=== PATIENT | male | born 1955 | race Caucasian/White ===

== ENCOUNTER 2018-11-07 12:37 | Emergency (ER) | payer OTHER ==
[2018-11-07 12:43] VITALS: BP 119/62; PULSE 74; TEMP 97.3; BMI 24.3
--- NOTE | 2018-11-07 13:40 | PDOC ---
*Physical Exam - Vital Signs Last Vital Signs Temp Pulse Resp BP Pulse Ox 97.3 F L 74 18 119/62 96 11/07/18 12:39 11/07/18 12:39 11/07/18 12:39 11/07/18 12:39 11/07/18 12:39 - Physical Exam Comments: 11/07/18 13:40 The patient was examined by [JUAN DIEGO Young] under my direct supervision. I personally evaluated the patient. I concur with the above findings and the plan of care.
--- NOTE | 2018-11-07 13:52 | PDOC ---
History of Present Illness - General Chief Complaint: Pain, Acute Stated Complaint: KIDNEY STONE Time Seen by Provider: 11/07/18 13:22 History Source: Patient Past History - Past Medical History Allergies/Adverse Reactions: Allergies Allergy/AdvReac Type Severity Reaction Status Date / Time sulfamethoxazole Allergy Verified 11/07/18 12:43 [From Bactrim] trimethoprim [From Bactrim] Allergy Verified 11/07/18 12:43 Home Medications: Ambulatory Orders Amlodipine Besylate 10 mg PO HS 11/07/18 Apixaban [Eliquis] 5 mg PO BID 11/07/18 Atorvastatin Ca [Lipitor] 10 mg PO HS 11/07/18 Dolutegravir/Rilpivirine [Juluca 50-25 mg Tablet] 1 each PO HS 11/07/18 Doxazosin Mesylate 2 mg PO HS 11/07/18 Glipizide [Glipizide ER] 10 mg PO BID 11/07/18 Metformin HCl [Glucophage] 500 mg PO BID 11/07/18 Metoprolol Succinate 250 mg PO HS 11/07/18 [place]-3/Dha/Epa/Fish Oil [[place] 3 500 Softgel] 1 each PO BID 11/07/18 Sitagliptin Phosphate [Januvia] 100 mg PO HS 11/07/18 Cancer: Yes (LUNG CA) Cardiac Disorders: Yes (A-FIB) COPD: No Diabetes: Yes HTN: Yes - Suicide/Smoking/Psychosocial Hx Smoking History: Never smoked Review of Systems - Review of Systems Constitutional: No: Chills, Fever, Malaise ABD/GI: No: Nausea, Vomiting, Abdominal cramping : No: Dysuria, Flank Pain, Hematuria *Physical Exam - Vital Signs Last Vital Signs Temp Pulse Resp BP Pulse Ox 97.3 F L 74 18 119/62 96 11/07/18 12:39 11/07/18 12:39 11/07/18 12:39 11/07/18 12:39 11/07/18 12:39 - Physical Exam General Appearance: Yes: Appropriately Dressed. No: Apparent Distress HEENT: positive: Normal Voice Neck: positive: Supple Respiratory/Chest: negative: Respiratory Distress Gastrointestinal/Abdominal: positive: Soft. 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 Pt states he seen seen by his review analyst at [place] [facility] yesterday who told pt that his renal function was worsening and sent pt for renal US where pt was dx josemelany stone. States he was then sent to the ED there, but signed out AMA as he was unhappy with care. Denies any flank pain, nausea, vomiting, dysuria or hematuria and reports feeling well at this time See exam Worsening renal function w/ 1.2 cm L stone/hydro on US yesterday Signed out AMA at OSH Reports no sxs Well rabia and stable w/ unremarkable exam -labs -CT 11/07/18 14:17 11/07/18 16:11 I called pt's PMD, Dr Carlos, and informed him of labs demonstrating cr of 2.[address] report showing ~1cm stone to proximal L ureter w/ mod hydro. Per MD, she does have and having worsening of his renal function lately. In September of this year, creatinine was 2.5, was 1.9 yesterday. Pt was then referred to a review analyst at [place]. Aware that we are going to get consult in ED. IVF in progress 11/07/18 17:10 Case d/w Dr Rucker of urology who states if patient has no pain, nausea, vomiting, and is stable, can be discharged to have procedure done electively. Wants patient to call him at his office tomorrow to be seen 11/07/18 17:13 *DC/Admit/Observation/Transfer Diagnosis at time of Disposition: Renal stone Hydronephrosis Qualifiers: Hydronephrosis type: unspecified Qualified Code(s): N13.30 - Unspecified hydronephrosis - Discharge Dispostion Disposition: HOME Condition at time of disposition: Good - Referrals Referrals: Damáin Montgomery MD [Primary Care Provider] - - Patient Instructions Printed Discharge Instructions: DI for Kidney Stones Additional Instructions: Please call Dr. Mederos of urology tomorrow for an appointment at Return to ED sooner if you become symptomatic - Post Discharge Activity
[2018-11-07 14:37] LABS: BASO % 0.9 % (0-2.0); EOS % 1.7 % (0-4.5); HEMATOCRIT 37.1 % (35.4-49); HEMOGLOBIN 12.9 GM/dL (11.7-16.9); LYMPH % 44.2 % (8-40); MCH 32.7 pg (25.7-33.7); MCHC 34.8 g/dl (32.0-35.9); MEAN CELL VOLUME 93.8 fl (80-96); MONO % 8.3 % (3.8-10.2); NEUT % 44.9 % (42.8-82.8); PLATELET COUNT 221 K/MM3 (134-434); RBC 3.96 M/mm3 (4.00-5.60); RDW 15.1 % (11.9-15.9); WHITE BLOOD COUNT 9.6 K/mm3 (4.0-10.0)
[2018-11-07 14:46] LABS: EPI CELLS 0.7 /HPF (0-5/HPF); URINE APPEARANCE CLEAR; URINE BILIRUBIN NEGATIVE (NEGATIVE); URINE CASTS 1 /hpf (0-8); URINE COLOR YELLOW; URINE GLUCOSE (UA) TRACE (NEGATIVE); URINE KETONE NEGATIVE (NEGATIVE); URINE LEUK ESTERASE TRACE (NEGATIVE); URINE NITRITE NEGATIVE (NEGATIVE); URINE PROTEIN NEGATIVE (NEGATIVE); URINE RBC 2 /hpf (0-4); URINE UROBILINOGEN 0.2 mg/dL (0.2-1.0); URINE WBC 5 /hpf (0-5)
[2018-11-07 15:01] LABS: ALBUMIN 4.6 g/dl (3.4-5.0); ALK PHOS 86 U/L (45-117); ANION GAP 8 MMOL/L (8-16); BILIRUBIN,TOTAL 0.4 mg/dL (0.2-1); BLOOD UREA NITROGEN 36 mg/dL (7-18); CALCIUM 10.1 mg/dL (8.5-10.1); CHLORIDE 104 mmol/L (98-107); CO2 22 mmol/L (21-32); CREATININE 2.2 mg/dL (0.55-1.3); GLUCOSE,RANDOM 185 mg/dL (74-106); POTASSIUM 4.7 mmol/L (3.5-5.1); SGOT/AST 25 U/L (15-37); SGPT/ALT 32 U/L (13-61); SODIUM 134 mmol/L (136-145); TOT PROT 8.4 g/dl (6.4-8.2)
[2018-11-07] MEDS ORDERED: SODIUM CHLORIDE 1,000 ML IV STA (15:57)
[2018-11-07] MEDS ORDERED: TAMSULOSIN HCL 0.4 MG CAP PO ONE (15:57)
[2018-11-07] MEDS ORDERED: TAMSULOSIN HCL 0.4 MG CAP ONE (16:02)
[2018-11-07 18:26] LABS: PLATELET ESTIMATE ADEQUATE
== END 2018-11-07 17:49 | disposition home or self-care (01) ==
LOC: JER 12:37
DX: S09.90XA Unspecified injury of head, initial encounter (principal); R41.82 Altered mental status, unspecified; W10.9XXA Fall (on) (from) unspecified stairs and steps, initial encounter; Y93.89 Activity, other specified; Y92.218 Other school as the place of occurrence of the external cause
CPT/HCPCS: 36415; 74176-TC; 80053; 81003; 85025; 99282-25; J7030

== ENCOUNTER 2018-11-15 11:27 | Day surgery (SDC) | payer OTHER ==
[2018-11-14 12:05] VITALS: BMI 24.3
--- NOTE | 2018-11-15 13:15 | HP ---
History & Physical Update - History History: No Change - Physical Physical: No Change - Assessment Assessment: No Change - Plan Plan: No Change
[2018-11-15] MEDS ORDERED: ACETAMINOPHEN 1000 MG/100 ML VIAL (NON FORMULARY) IVPB ONE (13:17)
[2018-11-15] MEDS ORDERED: PROPOFOL 20 ML ONE (13:17)
[2018-11-15] MEDS ORDERED: LIDOCAINE HCL/PF 2% SDV 5ML VIAL ONE (13:17)
[2018-11-15] MEDS ORDERED: MIDAZOLAM HCL 2 MG/2 ML SINGLE DOSE VIAL ONE (13:23)
[2018-11-15] MEDS ORDERED: ceFAZolin SODIUM 1 GM VIAL IVPB ONE (13:44)
[2018-11-15] MEDS ORDERED: LACTATED RINGERS SOLUTION 1,000 ML IV SCH (14:45)
[2018-11-15] MEDS ORDERED: ACETAMINOPHEN INJECTION 100 ML IVPB ONE (15:05)
[2018-11-15] MEDS ORDERED: oxyCODONE HCL 5 MG TABLET ONE (15:35)
[2018-11-15] MEDS ORDERED: oxyCODONE HCL 5 MG TABLET PO ONE (15:35)
[2018-11-15] MEDS ORDERED: oxyCODONE HCL 5 MG TABLET PO PRN ×2 (16:08)
--- NOTE | 2018-11-15 17:32 | PN ---
Progress Note (short form) - Note Progress Note: patient does not feel safe going home. will admit overnight for pain management and nausea
[2018-11-15] MEDS ORDERED: morphine SULFATE 4 MG/ML VIAL IVPUSH PRN ×2 (17:34→23:54)
[2018-11-15] MEDS ORDERED: ONDANSETRON 4 MG/2 ML VIAL IM PRN (17:35)
[2018-11-15] MEDS ORDERED: amLODIPine BESYLATE 10 MG TABLET (FP) PO SCH ×2 (17:45→22:00)
[2018-11-15] MEDS ORDERED: DOXAZOSIN MESYLATE 2 MG TABLET (FP) PO SCH ×2 (17:45→22:00)
[2018-11-15] MEDS: IBUPROFEN 800 MG/8 ML IJ IVPB SCH ×2 (18:31→18:53)
[2018-11-15] MEDS: DEXTROSE 5%-0.45% SALINE 1,000 ML IV SCH (18:51)
[2018-11-15] MEDS: CEFAZOLIN 1 GM/D5W 1 GM/50 ML BAG IVPB SCH (19:05)
[2018-11-15] MEDS ORDERED: IBUPROFEN 800 MG/8 ML IJ IVPB PRN (19:30)
[2018-11-15] MEDS: APIXABAN 5 MG TABLET PO SCH (21:34)
[2018-11-15] MEDS ORDERED: ATORVASTATIN CA 10 MG TABLET (FP) PO SCH (22:00)
[2018-11-15] MEDS ORDERED: sitaGLIPtin PHOSPHATE 100 MG TABLET (FP) PO SCH (22:00)
[2018-11-15] MEDS ORDERED: TAMSULOSIN HCL 0.4 MG CAP PO ONE (23:45)
[2018-11-16] MEDS ORDERED: PHENAZOPYRIDINE HCL 100 MG TABLET (FP) PO ONE (00:15)
--- NOTE | 2018-11-16 00:15 | OP ---
Operative Note - Note: Operative Date: 11/15/18 Pre-Operative Diagnosis: left ureteral calculus Operation: left ureteroscopic laser lithotripsy and ureteral stent placement Post-Operative Diagnosis: Same as Pre-op
[2018-11-16] MEDS: CEFAZOLIN 1 GM/D5W 1 GM/50 ML BAG IVPB SCH ×2 (01:56→11:16)
[2018-11-16] MEDS ORDERED: glipiZIDE 5 MG TABLET (FP) ONE (05:08)
[2018-11-16] MEDS ORDERED: PT OWN MED DRAWER 7, Y5N ONE ×4 (05:08→14:48)
[2018-11-16] MEDS: PHENAZOPYRIDINE HCL 100 MG TABLET (FP) PO SCH ×2 (06:25→14:05)
[2018-11-16] MEDS ORDERED: glipiZIDE 10 MG TABLET (FP) PO SCH (07:00)
[2018-11-16 08:24] LABS: BASO % 0.6 % (0-2.0); EOS % 0.8 % (0-4.5); HEMATOCRIT 31.8 % (35.4-49); HEMOGLOBIN 11.1 GM/dL (11.7-16.9); LYMPH % 27.8 % (8-40); MCH 32.4 pg (25.7-33.7); MCHC 34.8 g/dl (32.0-35.9); MEAN CELL VOLUME 93.2 fl (80-96); MEAN PLT VOLUME 8.1 fl (7.5-11.1); MONO % 7.8 % (3.8-10.2); PLATELET COUNT 188 K/MM3 (134-434); RBC 3.41 M/mm3 (4.00-5.60); RDW 14.9 % (11.9-15.9); WHITE BLOOD COUNT 10.7 K/mm3 (4.0-10.0)
[2018-11-16 08:28] LABS: ANION GAP 9 MMOL/L (8-16); BLOOD UREA NITROGEN 20 mg/dL (7-18); CALCIUM 8.7 mg/dL (8.5-10.1); CHLORIDE 105 mmol/L (98-107); CO2 22 mmol/L (21-32); CREATININE 1.5 mg/dL (0.55-1.3); GLUCOSE,RANDOM 238 mg/dL (74-106); SODIUM 136 mmol/L (136-145)
[2018-11-16] MEDS: APIXABAN 5 MG TABLET PO SCH (11:17)
--- NOTE | 2018-11-16 12:12 | PN ---
Progress Note (short form) - Note Progress Note: Afebrile VSS pain is improved. patient is voiding can discharge home
--- NOTE | 2018-11-16 12:46 | OP ---
DATE OF OPERATION: 11/15/2018 PREOPERATIVE DIAGNOSIS: Left ureteral calculus, left hydronephrosis. POSTOPERATIVE DIAGNOSIS: Left ureteral calculus, left hydronephrosis. PROCEDURE: Left ureteroscopic laser lithotripsy, retrograde pyelogram, and left ureteral stent placement. ANESTHESIA: General. SURGEON: Anatoly Rucker MD ESTIMATED BLOOD LOSS: None. DRAINS: A 6 x 26 double J ureteral stent. PREOPERATIVE INDICATIONS: The patient is 63-year-old male who has an obstructing 1-cm stone in the proximal left ureter with hydronephrosis. This has been there likely for several weeks to months, and he does not have any pain; however, he has significant hydronephrosis. He comes to the OR for laser lithotripsy. DESCRIPTION OF PROCEDURE: The patient was brought to the OR. Placed on the table in the supine position. Given general anesthesia and IV antibiotics and placed in the modified lithotomy position. The groin was prepped and draped sterilely. Cystoscopy was performed. The urethra and prostate appeared to be normal and unremarkable. The bladder itself also appear to be normal. The left UO was visualize. A wire was passed into the left kidney under fluoroscopic guidance. A 2nd wire was then placed through a 10-Yoruba lumen catheter, and the ureter was dilated. A flexible ureteroscope was easily passed up the ureter into the left kidney. No stones were seen in the ureter; however, the stone that was previously there was pushed up into the midpole. Using a Holmium laser fiber, the stone was broken up into small, passable fragments. There was a fair amount of inflammatory debris in the kidney most likely secondary to the longstanding obstruction. A 6 x 26 double J ureteral stent was left in place with 1 loop in the kidney, 1 loop in the bladder. The bladder was emptied. The patient was woken up. Klever [id number]
[2018-11-16 13:27] VITALS: BP 143/76; PULSE 76; TEMP 99
[2018-11-16] MEDS: DEXTROSE 5%-0.45% SALINE 1,000 ML IV SCH (14:04)
== END 2018-11-16 15:32 | disposition home or self-care (01) ==
LOC: JASU-SURG 11:27 → J8W 18:54 → JASU-SURG 11-16 15:32
PROVIDERS: ATTEND Urology
PROC: 0TF78ZZ Fragmentation in Left Ureter, Via Natural or Artificial Opening Endoscopic (ICD-10-PCS; principal; 2018-11-15 13:00)
PROC: 0T778DZ Dilation of Left Ureter with Intraluminal Device, Via Natural or Artificial Opening Endoscopic (ICD-10-PCS; 2018-11-15 13:00)
DX: N20.1 Calculus of ureter (principal); N13.39 Other hydronephrosis
CPT/HCPCS: 36415; 76000-TC-FY; 80048; 82962; 85025; 94760; J0131

== ENCOUNTER 2018-12-03 13:23 | Emergency (ER) | payer OTHER ==
[2018-12-03 13:37] VITALS: BP 155/65; PULSE 82; TEMP 97.5; BMI 25.7
--- NOTE | 2018-12-03 13:38 | PDOC ---
Rapid Medical Evaluation Time Seen by Provider: 12/03/18 13:31 Medical Evaluation: Allergies Allergy/AdvReac Type Severity Reaction Status Date / Time sulfamethoxazole Allergy Verified 12/03/18 13:33 [From Bactrim] trimethoprim [From Bactrim] Allergy Verified 12/03/18 13:33 12/03/18 13:36 I have performed a brief in-person evaluation of this patient. The patient presents with a chief complaints of: shortness of breath and weakness. Patient reports since last night he feels tired, weakness and " oozy" Pertinent physical exam findings NAD slightly diminished lung sound on the right,otherwise clear heart s1s2 + bowel sounds I have ordered the following: ekg, chest xray The patient will proceed to the ED for further evaluation. Discharge Disposition - Diagnosis Dizziness - Referrals - Patient Instructions - Post Discharge Activity
--- NOTE | 2018-12-03 13:46 | PDOC ---
History of Present Illness - General Chief Complaint: Shortness of Breath Stated Complaint: SOB Time Seen by Provider: 12/03/18 13:31 - History of Present Illness Initial Comments: 12/03/18 13:45 12/03/18 13:36 I have performed a brief in-person evaluation of this patient. The patient presents with a chief complaints of: shortness of breath and weakness. Patient reports since last night he feels tired, weakness and " oozy" Pertinent physical exam findings NAD slightly diminished lung sound on the right,otherwise clear heart s1s2 + bowel sounds I have ordered the following: ekg, chest xray The patient will proceed to the ED for further evaluation. Past History - Past Medical History Allergies/Adverse Reactions: Allergies Allergy/AdvReac Type Severity Reaction Status Date / Time sulfamethoxazole Allergy Verified 12/03/18 13:33 [From Bactrim] trimethoprim [From Bactrim] Allergy Verified 12/03/18 13:33 Home Medications: Ambulatory Orders Amlodipine Besylate 10 mg PO HS 11/07/18 Apixaban [Eliquis] 5 mg PO BID 11/07/18 Atorvastatin Ca [Lipitor] 10 mg PO HS 11/07/18 Dolutegravir/Rilpivirine [Juluca 50-25 mg Tablet] 1 each PO HS 11/07/18 Doxazosin Mesylate 2 mg PO HS 11/07/18 Glipizide [Glipizide ER] 10 mg PO BID 11/07/18 Metformin HCl [Glucophage] 500 mg PO BID 11/07/18 Metoprolol Succinate 250 mg PO HS 11/07/18 [place]-3/Dha/Epa/Fish Oil [[place] 3 500 Softgel] 1 each PO BID 11/07/18 Sitagliptin Phosphate [Januvia] 100 mg PO HS 11/07/18 Cancer: Yes (LUNG CA) Cardiac Disorders: Yes (A-FIB) COPD: No CHF: Yes Diabetes: Yes HTN: Yes - Surgical History Neurologic Surgery: Yes (L5 DISCCECTOMY) - Immunization History Immunization Up to Date: Yes - Suicide/Smoking/Psychosocial Hx Smoking History: Never smoked Hx Alcohol Use: No Drug/Substance Use Hx: No *Physical Exam - Vital Signs Last Vital Signs Temp Pulse Resp BP Pulse Ox 97.5 F L 82 16 155/65 97 12/03/18 13:33 12/03/18 13:33 12/03/18 13:33 12/03/18 13:33 12/03/18 13:33 *DC/Admit/Observation/Transfer Diagnosis at time of Disposition: Dizziness - Referrals - Patient Instructions - Post Discharge Activity
--- NOTE | 2018-12-03 14:17 | PDOC ---
History of Present Illness - General Chief Complaint: Shortness of Breath Stated Complaint: SOB Time Seen by Provider: 12/03/18 13:31 History Source: Patient Exam Limitations: No Limitations - History of Present Illness Initial Comments: 12/03/18 16:22 63-year-old male with of diabetes hypertension dyslipidemia and HIV presents with complaints of generalized weakness, fatigue and mild dizziness with standing. Patient states also his glucose has been in the 200s but denies any abdominal pain, nausea, urinary complaints, blood in his stool or urine. Patient states that had a ureteral stent removed by Dr. Rick White in 2 weeks ago secondary to a large kidney stone. Patient denies back pain or fever. Timing/Duration: intermittent Severity: mild Associated Symptoms: reports: loss of appetite, weakness Past History - Travel Traveled outside of the country in the last 30 days: No - Past Medical History Allergies/Adverse Reactions: Allergies Allergy/AdvReac Type Severity Reaction Status Date / Time sulfamethoxazole Allergy Verified 12/03/18 13:33 [From Bactrim] trimethoprim [From Bactrim] Allergy Verified 12/03/18 13:33 Home Medications: Ambulatory Orders Amlodipine Besylate 10 mg PO HS 11/07/18 Apixaban [Eliquis] 5 mg PO BID 11/07/18 Atorvastatin Ca [Lipitor] 10 mg PO HS 11/07/18 Dolutegravir/Rilpivirine [Juluca 50-25 mg Tablet] 1 each PO HS 11/07/18 Doxazosin Mesylate 2 mg PO HS 11/07/18 Glipizide [Glipizide ER] 10 mg PO BID 11/07/18 Metformin HCl [Glucophage] 500 mg PO BID 11/07/18 Metoprolol Succinate 250 mg PO HS 11/07/18 [place]-3/Dha/Epa/Fish Oil [[place] 3 500 Softgel] 1 each PO BID 11/07/18 Sitagliptin Phosphate [Januvia] 100 mg PO HS 11/07/18 Cancer: Yes (LUNG CA) Cardiac Disorders: Yes (A-FIB) COPD: No CHF: Yes Diabetes: Yes HTN: Yes - Surgical History Neurologic Surgery: Yes (L5 DISCCECTOMY) - Immunization History Immunization Up to Date: Yes - Suicide/Smoking/Psychosocial Hx Smoking History: Never smoked Hx Alcohol Use: No Drug/Substance Use Hx: No Patient Lives Alone: Yes Lives with/in: lives alone Review of Systems - Review of Systems Able to Perform ROS?: No Is the patient limited Mexican proficient: No Constitutional: Yes: Weakness HEENTM: No: Symptoms Reported Respiratory: No: Symptoms reported Cardiac (ROS): Yes: Lightheadedness ABD/GI: No: Symptoms Reported : No: Symptoms Reported Musculoskeletal: No: Symptoms Reported Integumentary: No: Symptoms Reported Neurological: Yes: Weakness. No: Symptoms reported Endocrine: No: Symptoms Reported Hematologic/Lymphatic: No: Symptoms Reported *Physical Exam - Vital Signs Last Vital Signs Temp Pulse Resp BP Pulse Ox 97.5 F L 82 16 155/65 97 12/03/18 13:33 12/03/18 13:33 12/03/18 13:33 12/03/18 13:33 12/03/18 13:33 - Physical Exam General Appearance: Yes: Nourished, Appropriately Dressed. No: Apparent Distress HEENT: positive: EOMI, MARY. negative: Pale Conjunctivae Neck: positive: Supple Respiratory/Chest: positive: Lungs Clear, Normal Breath Sounds. negative: Respiratory Distress, Accessory Muscle Use Cardiovascular: positive: Regular Rhythm, Regular Rate. negative: Murmur Gastrointestinal/Abdominal: positive: Soft. negative: Tenderness Integumentary: positive: Normal Color, Warm, Moist Neurologic: positive: Motor Strength 5/5 (ambulatory) Heart Score/ECG Review - ECG Intrepretation Rhythm: Regular Rhythm (Rate 97 rhythm A. fib. Left axis deviation with left ventricular hypertrophy) ED Treatment Course - LABORATORY CBC & Chemistry Diagram: 12/03/18 14:54 12/03/18 14:54 Medical Decision Making - Medical Decision Making 12/03/18 16:03 Chief complaint weakness dizziness and fatigue for the past few days. Patient with recent renal stone requiring stent placement and removal approximate 2 weeks ago. patient states HIV is undetectable Exam: Vital stable. No acute findings. Plan: Labs, urine, EKG and IV fluids 12/03/18 17:04 Laboratory Tests 11/07/18 11/16/18 12/03/18 14:12 07:00 14:54 WBC 12.2 H Hgb 13.7 Hct 40.5 D Absolute Neuts (auto) 7.5 Sodium Potassium Chloride Carbon Dioxide Anion Gap BUN Creatinine 2.2 H 1.5 H Random Glucose Calcium Magnesium AST ALT Urine Protein Urine Glucose (UA) Urine Ketones Urine Nitrite Ur Leukocyte Esterase Urine WBC (Auto) Urine RBC (Auto) 12/03/18 12/03/18 14:54 16:40 WBC Hgb Hct Absolute Neuts (auto) Sodium 136 Potassium 4.9 Chloride 101 Carbon Dioxide 24 Anion Gap 10 BUN 33 H Creatinine 1.7 H Random Glucose 240 H Calcium 10.6 H Magnesium 1.6 L AST 24 ALT 42 Urine Protein 1+ H Urine Glucose (UA) 1+ H Urine Ketones Negative Urine Nitrite Negative Ur Leukocyte Esterase Negative Urine WBC (Auto) 7 Urine RBC (Auto) 2 12/03/18 17:27 Patient states moderate improvement after receiving IV fluids. I will add a TSH cortisol and lipase and patient will be given copy of with. 12/03/18 17:30 *DC/Admit/Observation/Transfer Diagnosis at time of Disposition: Dizziness - Discharge Dispostion Disposition: HOME Condition at time of disposition: Improved - Referrals Referrals: ON STAFF,NOT [Primary Care Provider] - - Patient Instructions Printed Discharge Instructions: DI for Dizziness-Nonvertigo Additional Instructions: Please eat small frequent meals throughout the day. Observe for fever, change in bowel pattern or change in urine pattern, If any symptoms are noted please go back to the ER follow-up with your doctor. - Post Discharge Activity
[2018-12-03] MEDS ORDERED: SODIUM CHLORIDE 1,000 ML IV STA (14:27)
[2018-12-03 15:06] LABS: EOS % 1.1 % (0-4.5); HEMATOCRIT 40.5 % (35.4-49); HEMOGLOBIN 13.7 GM/dL (11.7-16.9); LYMPH % 30.1 % (8-40); MCH 31.8 pg (25.7-33.7); MCHC 33.8 g/dl (32.0-35.9); MEAN CELL VOLUME 93.9 fl (80-96); MEAN PLT VOLUME 7.7 fl (7.5-11.1); NEUT % 61.8 % (42.8-82.8); PLATELET COUNT 240 K/MM3 (134-434); RBC 4.32 M/mm3 (4.00-5.60); WHITE BLOOD COUNT 12.2 K/mm3 (4.0-10.0)
[2018-12-03 15:32] LABS: ALBUMIN 4.4 g/dl (3.4-5.0); ALK PHOS 78 U/L (45-117); ANION GAP 10 MMOL/L (8-16); BILIRUBIN,TOTAL 0.4 mg/dL (0.2-1); BLOOD UREA NITROGEN 33 mg/dL (7-18); CALCIUM 10.6 mg/dL (8.5-10.1); CHLORIDE 101 mmol/L (98-107); CO2 24 mmol/L (21-32); CREATININE 1.7 mg/dL (0.55-1.3); GLUCOSE,RANDOM 240 mg/dL (74-106); MAGNESIUM 1.6 mg/dL (1.8-2.4); POTASSIUM 4.9 mmol/L (3.5-5.1); SGOT/AST 24 U/L (15-37); SGPT/ALT 42 U/L (13-61); SODIUM 136 mmol/L (136-145)
[2018-12-03] MEDS ORDERED: MAGNESIUM SULF 50% (8.12 MEQ/2 ML-1 GM VIAL) IVPB ONE (16:22)
[2018-12-03 16:52] LABS: EPI CELLS 1.8 /HPF (0-5/HPF); URINE APPEARANCE CLEAR; URINE BACTERIA 2.9 /hpf (NEGATIVE); URINE BILIRUBIN NEGATIVE (NEGATIVE); URINE CASTS 6 /lpf (0-8); URINE COLOR YELLOW; URINE GLUCOSE (UA) 1+ (NEGATIVE); URINE KETONE NEGATIVE (NEGATIVE); URINE LEUK ESTERASE NEGATIVE (NEGATIVE); URINE NITRITE NEGATIVE (NEGATIVE); URINE PROTEIN 1+ (NEGATIVE); URINE RBC 2 /hpf (0-4); URINE UROBILINOGEN 0.2 mg/dL (0.2-1.0); URINE WBC 7 /hpf (0-5)
[2018-12-03 17:22] LABS: PLATELET ESTIMATE NORMAL
[2018-12-03 17:55] LABS: LIPASE 214 U/L (73-393)
[2018-12-03] MEDS ORDERED: MAGNESIUM 1GM/D5W - 2 GM/200 ML IVPB IVPB ONE (18:02)
--- NOTE | 2018-12-04 11:40 | EKG ---
Test Reason : Blood Pressure : / mmHG Vent. Rate : 097 BPM Atrial Rate : 110 BPM P-R Int : 000 ms QRS Dur : 138 ms QT Int : 370 ms P-R-T Axes : 000 -77 075 degrees QTc Int : 469 ms ATRIAL FIBRILLATION LEFT AXIS DEVIATION LEFT VENTRICULAR HYPERTROPHY WITH QRS WIDENING ABNORMAL ECG WHEN COMPARED WITH ECG OF 22-SEP-2006 14:28, INCOMPLETE RIGHT BUNDLE BRANCH BLOCK IS NO LONGER PRESENT Confirmed by Leodan Parker MD ([id number]) on 12/04/2018 11:39:31 AM Referred By: Confirmed By:Leodan Parker MD
== END 2018-12-03 18:19 | disposition home or self-care (01) ==
LOC: JER 13:23
PROC: 3E0337Z Introduction of Electrolytic and Water Balance Substance into Peripheral Vein, Percutaneous Approach (ICD-10-PCS; principal; 2018-12-03)
PROC: 3E033GC Introduction of Other Therapeutic Substance into Peripheral Vein, Percutaneous Approach (ICD-10-PCS; 2018-12-03)
DX: R42 Dizziness and giddiness (principal); I11.0 Hypertensive heart disease with heart failure; I50.9 Heart failure, unspecified; I48.91 Unspecified atrial fibrillation; Z79.01 Long term (current) use of anticoagulants; E11.9 Type 2 diabetes mellitus without complications; Z85.118 Personal history of other malignant neoplasm of bronchus and lung; Z21 Asymptomatic human immunodeficiency virus [HIV] infection status
CPT/HCPCS: 36415; 80053; 81003; 82533; 83690; 83735; 84443; 85025; 87086; 93005; 93010; 96361; 96374; 99282-25; J7030

== ENCOUNTER → 2019-03-26 | Outpatient (CLI) | payer OTHER | LOC: YHH 11:27 ==